=== PATIENT | female | born 1950 | race Caucasian/White ===

== ENCOUNTER 2016-09-13 11:54 | Day surgery (SDC) | payer MEDICARE ==
[2016-09-13] MEDS ORDERED: LACTATED RINGERS 1,000 ML ONE (12:01)
[2016-09-13] MEDS ORDERED: IV START KIT ONE (12:02)
[2016-09-13] MEDS ORDERED: PROPOFOL 20 ML IV ONE ×2 (12:54→13:48)
[2016-09-13] MEDS ORDERED: FENTANYL 250 MCG/5 ML AMP ONE (12:55)
[2016-09-13] MEDS ORDERED: LACTATED RINGERS 1,000 ML IV SCH (13:45)
--- NOTE | 2016-09-17 10:45 | SURGPATH ---
[facility] [address] [place] [id number] Patient Name: JANE MARKS MR#: [id number] : 1950 Gender: F Specimen #: [id number] Collected: 09/13/2016 Received: 09/14/2016 Reported: 09/17/2016 Submitting Phys: OCTAVIA TAYLOR Copy To Phys: [facility] Clinical History / Pre-Operative Diagnosis: Diarrhea Specimen Source / Surgical Procedure Performed: #1-TERMINAL ILEUM BIOPSY; #2-RANDOM COLON BIOPSY Interpretation: 1, 2. TERMINAL ILEUM, RANDOM COLON, BIOPSIES: - NO PATHOLOGIC DIAGNOSIS Electronically Signed Out Evan Smith M.D. Gross Description: #1 The specimen is received in a formalin filled container labeled with the patient's name and "terminal ileum biopsy". A single melgar biopsy is 0.5 cm. Totally embedded in cassette #1. #2 The specimen is received in a formalin filled container labeled with the patient's name and "random colon biopsies". Multiple melgar biopsies are 0.2-0.4 cm. Totally embedded in cassette #2. Bello Yates, PFuad Microscopic Description: 1. Levels reveal small intestinal mucosa with a villous architecture and prominent lymphoid aggregates consistent with ileum. Ulceration, acute inflammation, granulomas, dysplasia and malignancy are not present. 2. Levels reveal colonic mucosa with a normal glandular architecture. Ulceration, acute inflammation, crypt abscesses, granulomas, hyperplasia, dysplasia and malignancy are not seen. 1: 99212 2: 92306 R19.7
== END 2016-09-13 14:12 | disposition home or self-care (01) ==
LOC: SDC 11:54
PROVIDERS: ATTEND Surgery
PROC: 0DBB8ZX Excision of Ileum, Via Natural or Artificial Opening Endoscopic, Diagnostic (ICD-10-PCS; principal; 2016-09-13)
PROC: 0DBK8ZX Excision of Ascending Colon, Via Natural or Artificial Opening Endoscopic, Diagnostic (ICD-10-PCS; 2016-09-13)
PROC: 0DBP8ZX Excision of Rectum, Via Natural or Artificial Opening Endoscopic, Diagnostic (ICD-10-PCS; 2016-09-13)
PROC: 0DBM8ZX Excision of Descending Colon, Via Natural or Artificial Opening Endoscopic, Diagnostic (ICD-10-PCS; 2016-09-13)
PROC: 0DBN8ZX Excision of Sigmoid Colon, Via Natural or Artificial Opening Endoscopic, Diagnostic (ICD-10-PCS; 2016-09-13)
PROC: 0DBL8ZX Excision of Transverse Colon, Via Natural or Artificial Opening Endoscopic, Diagnostic (ICD-10-PCS; 2016-09-13)
DX: K52.9 Noninfective gastroenteritis and colitis, unspecified (principal); I10 Essential (primary) hypertension; E03.9 Hypothyroidism, unspecified; E11.9 Type 2 diabetes mellitus without complications; Z79.82 Long term (current) use of aspirin; Z88.5 Allergy status to narcotic agent
CPT/HCPCS: 45380; J3010; J7120